=== PATIENT | male | born 1950 | race Caucasian/White ===

== ENCOUNTER 2017-07-10 09:26 | Inpatient (IN) | payer OTHER ==
[2017-07-10] MEDS ORDERED: NS 500 ML IV ONE (09:36)
--- NOTE | 2017-07-10 09:38 | EDPHY ---
H & P Time Seen by Provider: 07/10/17 09:26 HPI/ROS: CHIEF COMPLAINT: Weakness and lightheaded HISTORY OF PRESENT ILLNESS: Patient had cervical spine surgery on June 28 and was discharged home 9 days ago and has been living with a friend he knows from [employer]. According to the discharge summary dated 07/01/2017 he had C3 through 6 decompressive laminectomy with a C3 through T1 posterior spinal fusion. According to EMS they were called because she can't take care of him anymore. Patient says he gets intermittently lightheaded ever since surgery. He describes this as dizziness like "when you stand up too fast after you been working outside on a hot day". Denies vertigo or spinning or ataxia. REVIEW OF SYSTEMS: Eye: no change in vision ENT: no sore throat Cardiac: no chest pain or syncope Pulmonary: no cough or SOB Abdomen: no vomiting, diarrhea, abdominal pain Musculoskeletal: Postoperative neck pain otherwise negative Skin: no rash Neuro: no headache Constitutional: no fever : no urinary symptoms A comprehensive 10 point review of systems is otherwise negative aside from elements mentioned in the history of present illness. PAST MEDICAL HISTORY: Bypass surgery, cervical spine fusion, hypertension, BPH Social history: Living with a friend from [facility] that he knows from [employer], smoker General Appearance: Fluctuates between alert and sleepy,cooperative. Eyes: No scleral icterus. ENT, Mouth: Normal mucous membranes. Respiratory: Normal respiratory effort, breath sounds equal, lungs are clear to auscultation. Cardiovascular: Regular rate and rhythm. Gastrointestinal: Abdomen is soft and non tender. Neurological: Intermittently sleepy and then alert, face symmetric, normal motor and sensory in extremities. Patient initially was quite alert but on repeat examination has some fluctuation in his level of consciousness and the clarity of his speech. Intermittently slurring his words. Skin: Warm and dry, no rashes. Posterior cervical incision looks clean dry and intact without discharge or surrounding warmth or tenderness. Some postoperative inflammatory changes 5 mm each side but no evidence of cellulitis. Musculoskeletal: No peripheral edema. Psychiatric: Not agitated. Emergency Department course/MDM: CBC chemistry and EKG, case management. IV normal saline 500 mL. I do not think this is an acute stroke. 1247: Case management able to talk to the patient's brother in [place]. Apparently he was brought here because he has been intermittently confused, falling, concerned that this may be related to too much medication and he is no longer safe at home with his current state. The brother states that this has been a problem since he was discharged from the hospital, so at least 1 week in duration. Plan for CT scanning of head and cervical spine, admission to hospitalist service. Unable to care for self at home, waxing and waning encephalopathy. Constitutional: Initial Vital Signs Temperature (C) 36.5 C 07/10/17 09:35 Heart Rate 92 07/10/17 09:35 Respiratory Rate 16 07/10/17 09:35 Blood Pressure 140/81 H 07/10/17 09:35 O2 Sat (%) 95 07/10/17 09:35 O2 Delivery Mode Room Air Allergies/Adverse Reactions: No Known Allergies Allergy (Unverified 07/10/17 09:35) Home Medications: Medication Instructions Recorded Acetaminophen [Tylenol ES 500 mg 500 mg PO Q6 PRN 07/10/17 (*)] Cyclobenzaprine [Flexeril 10 MG 10 mg PO TID PRN 07/10/17 (*)] Docusate Sodium [Colace 100 MG (*)] 100 mg PO BID 07/10/17 Metoprolol Tartrate [Lopressor 25 25 mg PO BID 07/10/17 mg (*)] Tamsulosin HCl [Flomax 0.4 MG (*)] 0.4 mg PO BID 07/10/17 oxyCODONE IR [Oxycodone Ir (*)] 5 - 10 mg PO Q6H PRN 07/10/17 Medical Decision Making - Diagnostics EKG Interpretation: 12-lead EKG interpreted by me; official reading is in trace master. My interpretation is sinus rhythm with right axis and old anterior septal infarct. Rate 90. Imaging Results: Imaging Impressions Cervical Spine CT 07/10/17 12:48 Impression: Head CT within normal limits. 2. CT Cervical Spine Without Contrast History: Pain, recent surgery on June 28 , multiple falls since surgery Technique: Multislice helical CT through the cervical spine without contrast from the skull base to T1. Soft tissue and bone evaluation is performed. Sagittal and coronal reconstructions are obtained and reviewed. Images are transferred to the independent 3-D workstation were right created a special model to review the orthopedic hardware and photographed it. Dose reduction techniques were utilized. Findings: Artifact from surgical hardware precludes high resolution soft tissue evaluation of the operative bed. There is some residual postoperative gas in the operative bed. Cervical alignment is anatomic. There is been wide laminectomy between C3 and C7 with posterior fusion between C3 and T1, consisting of posterior transpillar screws on the right at C3, C4 ,C6 and T1 and on the left involving C3, C4, C5,C6 and T1. There is prominent lucency associated with the left C5 screw suggesting that it may be loose. The left C4 screw penetrates the lateral cortex of the mid articular pillar. The left C6 screw slightly penetrates the anterior cortex of the articular pillar. The right C4 screw appears to course through the upper articular pillar cortex and facet joint. The right C6 screw appears to penetrate the inferior cortex of the articular pillar and resides within the C6-C7 facet joint. There are bilateral dorsal vertical supporting rods and a transverse fixation bar at C6. No fracture or dislocation is identified. The relationship between skull base and C1 is normal. The C1-C2 articulation is severely osteoarthritic, but remains normally aligned. The odontoid process is intact. There is severe degenerative disk space narrowing between C4 and C6. I suspect that the C5-C6 disk space has been previously solidly fused. There is degenerative sclerosis in C4 and C5. There is chronic compression of the superior endplate of C5. There is degenerative vacuum phenomenon in the C5-C6 disk space where there are both ventral and small posterior osteophytes present. There is narrowing of the T1- T2 disk space. There is erosive endplate change at C4-C5, C6-C7 and at T1-T2. Is bilateral bone graft material. Facet joints are normally aligned. The cervical thoracic junction is normally aligned. Soft tissue window evaluation does not show evidence of epidural or prevertebral hematoma. Impression: Postoperative changes described above. No evidence for hardware uncoupling or fracture or acute bone fracture or malalignment. Results called to Dr. Mena at 1:51 PM. Final results are concordant with the initial interpretation. General information for patients regarding this examination can be found at [email or web address]. If you have questions or comments about this report, please contact me at [phone](hospital) or [phone] (cell). Head CT 07/10/17 12:48 Impression: Head CT within normal limits. 2. CT Cervical Spine Without Contrast History: Pain, recent surgery on June 28 , multiple falls since surgery Technique: Multislice helical CT through the cervical spine without contrast from the skull base to T1. Soft tissue and bone evaluation is performed. Sagittal and coronal reconstructions are obtained and reviewed. Images are transferred to the independent 3-D workstation were right created a special model to review the orthopedic hardware and photographed it. Dose reduction techniques were utilized. Findings: Artifact from surgical hardware precludes high resolution soft tissue evaluation of the operative bed. There is some residual postoperative gas in the operative bed. Cervical alignment is anatomic. There is been wide laminectomy between C3 and C7 with posterior fusion between C3 and T1, consisting of posterior transpillar screws on the right at C3, C4 ,C6 and T1 and on the left involving C3, C4, C5,C6 and T1. There is prominent lucency associated with the left C5 screw suggesting that it may be loose. The left C4 screw penetrates the lateral cortex of the mid articular pillar. The left C6 screw slightly penetrates the anterior cortex of the articular pillar. The right C4 screw appears to course through the upper articular pillar cortex and facet joint. The right C6 screw appears to penetrate the inferior cortex of the articular pillar and resides within the C6-C7 facet joint. There are bilateral dorsal vertical supporting rods and a transverse fixation bar at C6. No fracture or dislocation is identified. The relationship between skull base and C1 is normal. The C1-C2 articulation is severely osteoarthritic, but remains normally aligned. The odontoid process is intact. There is severe degenerative disk space narrowing between C4 and C6. I suspect that the C5-C6 disk space has been previously solidly fused. There is degenerative sclerosis in C4 and C5. There is chronic compression of the superior endplate of C5. There is degenerative vacuum phenomenon in the C5-C6 disk space where there are both ventral and small posterior osteophytes present. There is narrowing of the T1- T2 disk space. There is erosive endplate change at C4-C5, C6-C7 and at T1-T2. Is bilateral bone graft material. Facet joints are normally aligned. The cervical thoracic junction is normally aligned. Soft tissue window evaluation does not show evidence of epidural or prevertebral hematoma. Impression: Postoperative changes described above. No evidence for hardware uncoupling or fracture or acute bone fracture or malalignment. Results called to Dr. Mena at 1:51 PM. Final results are concordant with the initial interpretation. General information for patients regarding this examination can be found at [email or web address]. If you have questions or comments about this report, please contact me at [phone](hospital) or [phone] (cell). Madhavi at 1351: postop changes, negative head. Head and cervical spine CT. Imaging: Discussed imaging studies w/ director call Radiologist Differential Diagnosis: Differential diagnosis considered for lightheadedness and near syncope including but not limited to vasovagal syncope, arrhythmia, dehydration, and blood loss. Consult/Admit Bed Type: [facility] 1257 - Data Points Laboratory Results: Laboratory Results 07/10/17 09:45 07/10/17 09:45 07/10/17 07/10/17 09:45 09:45 WBC 6.66 10^3/uL 10^3/uL (3.80-9.50) RBC 3.31 10^6/uL L 10^6/uL (4.40-6.38) Hgb 12.5 g/dL L g/dL (13.7-17.5) Hct 35.0 % L % (40.0-51.0) MCV 105.7 fL H fL (81.5-99.8) MCH 37.8 pg H pg (27.9-34.1) MCHC 35.7 g/dL g/dL (32.4-36.7) RDW 12.2 % % (11.5-15.2) Plt Count 163 10^3/uL 10^3/uL (150-400) MPV 9.3 fL fL (8.7-11.7) Neut % (Auto) 51.2 % % (39.3-74.2) Lymph % (Auto) 33.6 % % (15.0-45.0) Bent % (Auto) 12.8 % % (4.5-13.0) Eos % (Auto) 1.1 % % (0.6-7.6) Baso % (Auto) 0.8 % % (0.3-1.7) Nucleat RBC Rel Count 0.0 % % (0.0-0.2) Absolute Neuts (auto) 3.42 10^3/uL 10^3/uL (1.70-6.50) Absolute Lymphs (auto) 2.24 10^3/uL 10^3/uL (1.00-3.00) Absolute Monos (auto) 0.85 10^3/uL H 10^3/uL (0.30-0.80) Absolute Eos (auto) 0.07 10^3/uL 10^3/uL (0.03-0.40) Absolute Basos (auto) 0.05 10^3/uL 10^3/uL (0.02-0.10) Absolute Nucleated RBC 0.00 10^3/uL 10^3/uL (0-0.01) Immature Gran % 0.5 % % (0.0-1.1) Immature Gran # 0.03 10^3/uL 10^3/uL (0.00-0.10) Sodium 137 mEq/L mEq/L (135-145) Potassium 4.4 mEq/L mEq/L (3.5-5.2) Chloride 106 mEq/L mEq/L (97-110) Carbon Dioxide 22 mEq/l mEq/l (22-31) Anion Gap 9 mEq/L mEq/L (8-16) BUN 23 mg/dL mg/dL (7-23) Creatinine 0.9 mg/dL mg/dL (0.7-1.3) Estimated GFR > 60 Glucose 95 mg/dL mg/dL (70-100) Calcium 8.8 mg/dL mg/dL (8.5-10.4) Medications Given: Discontinued Medications Sodium Chloride (Ns) 500 mls @ 0 mls/hr IV EDNOW ONE; Wide Open PRN Reason: Protocol Stop: 07/10/17 09:37 Last Admin: 07/10/17 09:56 Dose: 500 mls Departure - Departure Disposition: [facility] Acute Clinical Impression: Near syncope, Encephalopathy acute Condition: Good
--- NOTE | 2017-07-10 09:42 | CPEKG ---
Heart Rate: 90 RR Interval: 667 P-R Interval: 144 QRSD Interval: 82 QT Interval: 348 QTC Interval: 426 P [place]: 86 QRS [place]: 89 T Wave [place]: 92 EKG Severity - ABNORMAL ECG - EKG Impression: SINUS RHYTHM EKG Impression: BORDERLINE RIGHT AXIS DEVIATION EKG Impression: CONSIDER ANTEROSEPTAL INFARCT EKG Impression: NONSPECIFIC T ABNORMALITIES, LATERAL LEADS Electronically Signed By: Adan Mena 10-Jul-2017 10:29:44
[2017-07-10 10:02] LABS: PLATELET COUNT 163 10^3/uL (150-400)
[2017-07-10] MEDS ORDERED: ACETAMINOPHEN 500 MG TAB PO PRN (16:35)
[2017-07-10] MEDS ORDERED: ALBUTEROL 3 ML DEYVIAL IH PRN (16:44)
[2017-07-10] MEDS ORDERED: ONDANSETRON DISINTEGRATING 4 MG TAB PO PRN (16:44)
[2017-07-10] MEDS ORDERED: ONDANSETRON 4 MG/2 ML VIAL IVP PRN (16:44)
[2017-07-10] MEDS ORDERED: D5W 1/2 NS 1,000 ML IV SCH (16:45)
[2017-07-10] MEDS ORDERED: KETOROLAC 30 MG/1 ML SDV IVP ONE (16:48)
--- NOTE | 2017-07-10 16:59 | ASMTCMCOM ---
CM Note CM Note Notes: Pt transported to the Emergency Department by EMS for dizziness and weakness. Pt is approximately 1 week post op folllowing a C3-6 decompressive laminectomy and C3-T1 posterior spinal fusion at the [facility] on 06/28/17. Asked to see pt by Dr. Mena and JEROD Tang. Met with pt to discuss current situation. Pt very drowsy, confused, difficult to talk to. Pt appears to be a poor historian, providing multiple addresses. Pt unsure of emergency contact phone numbers. Pt states CM can call his Asphalt Distributor Tender, Juan Lees, at [facility] for emergency contact information. Pt reports having his own apartment, but says he has been living with his girlfriend since surgery. Pt says his girlfriend is Hebrew and is named Eliceo Wells, they met at [facility]. Pt does not know girlfriend's number. CM attempted to meet with pt on several occasions. Information from the pt changed with each conversation. CM to reach pt's emergency contacts for assistance in determining plan of care. Unclear why pt is here and how long he has been feeling poorly. Pt reports living at [address] [place] [address] [address] [address]. Pt states his personal cell phone number is . Attempted to call number, pt's name and voice on recording. Call placed to [facility] in [place] , no answer. Attempted several times. Call placed to Juan Lees in [place] (personal residence), no answer. Call placed to [facility] , left voice message for auto specialty services manager. Call placed to [facility] , received number for [facility] administration xt [phone]. Spoke to Ne, Swing Driver on-call at [facility]. Emergency contact information obtained: Danny Vera - brother in [place], [place] Allison Nikki Vera - ex Spoke with pt, permission received to call Danny Vera. Call placed to Danny . Per Danny, pt "has been incoherent confused, dizzy, sleeping all the time, and has fallen a few times since surgery." Danny believes there "may be medication issues." Danny provided Eliceo's contact information (cell), (home). Call placed to pt's girlfriend Eliceo, left voice message. Updates provided to Clyde Navarrete, RN. Pt to be admitted for further evaluation and work up. Call placed to [place] Administration, spoke with Lucero Shi RN. Per Yuridia, pt has [employer] with a 20% service connected, non-exempt plan. The pt is not travel eligible and therefore, cannot be transferred to the [facility]. Yuridia to contact [facility] regarding pt's admission to [facility] ([facility]). Yuridia encouraged [facility] billing department to contact the following parties regarding insurance and coverage benefits: [facility] xt 1006 Jamila Cid at [facility] direct number Lucero Shi RN, Yuridia reports pt's brother and girlfriend had [facility] since discharge 07/01/17 with similar complaints. Family was advised to bring pt to [place] [facility] Department on 07/05/17 and they never showed up. Yruidia said pt's girlfriend called the nurse help line almost daily stating she was unable to care for the pt. In several calls with the pt, he stated he "was doing better and better." Yuridia also offered to connect pt's neurosurgeon Jojo Myers MD with our Hospitalist for any questions or concerns regarding treatment and medications. Yuridia to alert all appropriate parties at the [place] regarding pt's admission and will be in contact with [facility]. Updates provided to Clyde Navarrete, RN and pt's brother Danny. Discharge needs remain unclear at this time. CM will cont to follow. Current Discharge Plan: To be determined Date Signed: 07/10/2017 04:58 PM Electronically Signed By:Kimberly Harrison RN
--- NOTE | 2017-07-10 17:15 | GHP ---
[f rep st] HISTORY AND PHYSICAL DATE OF ADMISSION: 07/10/2017 CHIEF COMPLAINT: Dizziness and weakness. HISTORY OF PRESENT ILLNESS: This is a 67-year-old male, who is status post cervical spine surgery wi th a C3 to C6 decompression and a C3 to T1 posterior fusion performed on 06/28. This surgery was per formed at an outside facility, one of which he cannot name at this time. He was discharged and, for the last 2 weeks to 9 days, he has been weak and dizzy and falling at home. He is being cared for at home by a friend. The friend called EMS because he keeps falling when he stands up. There is no cl ear history here that he has had full syncope, any chest pain, or full loss of consciousness. The pa olman himself reports that he has had dizziness when he tries to stand, and he will fall forward or f all back, and he said he has hit his head several times but has not had loss of consciousness. In th is state, he has been brought into the emergency department. Evaluation in the ER indicated that his mental status would wax and wane, where he would be quite sleepy and then alert. He was given fluid , but there seemed to be no resolution of his alternating mental status, so he was admitted for evalu ation of this acute encephalopathy. His medications are noted and include Flexeril and Oxy IR, but I do not know the quantity of these that he has been taking. Currently on the floor, the gentleman re ports that he has considerable less pain in his neck than he did before the surgery. He was sleeping but easily arousable during my evaluation. A CT scan of the head shows no acute findings and a CT s can of the cervical spine shows no surgical disruption and only postoperative changes. PAST MEDICAL HISTORY: 1. CABG performed in 2002. 2. Hypertension for many years. 3. BPH which is currently under treatment. REVIEW OF SYSTEMS: Except as noted in the HPI, a full 10-point review of systems is entirely negativ e. Specifically, he denies that he has had a sore throat, fever, cough, or feelings of shortness of breath, orthopnea, PND, or any chest pain. He has also had no nausea, vomiting, and reports that his bowels are moving with some assistance but denies hematemesis or hematochezia. He also denies any d ysuria or frequency. Neurologically, he reports that his arms feel much better postoperatively and h as considerably less pain. He denies lower extremity neurologic findings. ALLERGIES: None. SOCIAL HISTORY: Tobacco is currently, and he is smoking 4-6 cigarettes a day and has at least a 40-t s-17-kywl-year history of tobacco as he has been smoking for 40 years and reports he smoked quite hea vily. He stopped alcohol approximately 6 years ago and reports, at times, he drank heavily but never had problems of abuse or blacking out. His a few years ago, and he is staying with a [employer] nd at this time who helped him through the of his . 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 FAMILY HISTORY: Noncontributory for cardiovascular disease. PHYSICAL EXAMINATION: GENERAL: This is a pleasant, alert gentleman who is easily arousable. VITAL SIGNS: He is mildly hypertensive. Heart rate is normal. Oxygen saturation is normal. HEENT: A fe w abrasions on his forehead but the posterior scalp is atraumatic. He is in a [place] fixed cer vical collar which was not removed at this time. Below this area, there appears to be no signs of tr auma, bleeding. CHEST WALL: Nontender to palpation. He has perhaps a slight increase in barrel cecile sted. His breath sounds are diminished slightly overall, but there are no rales, wheezing, or rhonch i. HEART: Regular rate and rhythm. Normal S1 and S2 without a gallop. JVP does not appear to be e levated through the cervical collar. ABDOMEN: Thin. Normoactive bowel sounds. No masses, tenderne ss, organomegaly. EXTREMITIES: No edema, cyanosis, clubbing. Neurologic: He is oriented x3, altho ugh he cannot remember the name of the facility or the physician who performed his surgery. When rem inded, he can remember today's date. Cranial nerves 2-12 are intact to specific testing. His handgr ips are normal. Leg strength and foot strength are normal. LABORATORY: CBC is normal, except for a slightly low hemoglobin at 12.5. Chemistry panel is also no rmal, with normal renal function. Toxicology report has not been done. No blood cultures are drawn. ASSESSMENT: 1. Acute encephalopathy of a waxing and waning in nature. By report, he has been both confused, diz zy, but these symptoms have been both waxing and waning, not only in the emergency department but at home. He was prescribed only narcotic pain medication of a short-acting nature, along with Flexeril, and it seems likely that it is the combination of the short-acting medications causing a waxing and waning mental status. This evening, I am going to stop both of these, and he will be treated only wi th Tylenol and perhaps Toradol. His renal function is normal and he is certainly postop so, at this point, bleeding is not a problem. 2. Hypertension. He has a history of hypertension, and I will restart his metoprolol. He is mildly hypertensive here on the floor. 3. History of coronary artery disease status post CABG. His ECG on review is normal with a sinus rh ythm, showing a possible remote anterior septal myocardial infarction but no acute changes. Chest x- ray is pending. 4. DVT prophylaxis will be with Lovenox as he is postoperative now. 5. Code status is full. 6. Power of erisa attorney is not established. Time was 60 minutes. Patient will be admitted to observation status pending further evaluation. /[id number]/MODL
[2017-07-10] MEDS ORDERED: KETOROLAC 15 MG/1 ML SDV IVP SCH (18:00)
[2017-07-10] MEDS: ACETAMINOPHEN 500 MG TAB PO PRN (18:34)
[2017-07-10] MEDS: METOPROLOL TARTRATE 25 MG TAB PO SCH (20:41)
[2017-07-10] MEDS: DOCUSATE SODIUM 100 MG CAP PO SCH (20:44)
[2017-07-10] MEDS: TAMSULOSIN HCL 0.4 MG CAP PO SCH (20:44)
[2017-07-10] MEDS ORDERED: hydrALAZINE 10 MG TAB PO PRN (23:39)
[2017-07-11 04:50] LABS: PLATELET COUNT 154 10^3/uL (150-400)
[2017-07-11] MEDS: ACETAMINOPHEN 500 MG TAB PO PRN (06:03)
[2017-07-11] MEDS ORDERED: traMADol 50 MG TAB PO PRN (09:30)
[2017-07-11] MEDS: ENOXAPARIN 40 MG/0.4 ML SYR SC SCH (09:31)
[2017-07-11] MEDS: METOPROLOL TARTRATE 25 MG TAB PO SCH ×2 (09:32→21:02)
[2017-07-11] MEDS: DOCUSATE SODIUM 100 MG CAP PO SCH ×2 (09:33→21:02)
[2017-07-11] MEDS: TAMSULOSIN HCL 0.4 MG CAP PO SCH ×2 (09:33→21:02)
[2017-07-11] MEDS: ACETAMINOPHEN 500 MG TAB PO SCH ×2 (11:58→16:14)
[2017-07-11] MEDS ORDERED: NS 1,000 ML IV SCH (12:30)
[2017-07-11] MEDS ORDERED: NS 1,000 ML IV ONE (13:00)
--- NOTE | 2017-07-11 15:48 | ASMTCMCOM ---
CM Note CM Note Notes: PT recommending that patient use a 4WW when up walking but not needing HC; OT not anticipating HC needs. Patient to go home with girlfriend. Patient wants to be discharged today. Date Signed: 07/11/2017 03:48 PM Electronically Signed By:Roseline Clay LCSW
[2017-07-11] MEDS: METAXALONE 800 MG TAB PO SCH ×2 (16:14→21:02)
--- NOTE | 2017-07-11 16:51 | HOSPPROG ---
Hospitalist Progress Note Assessment/Plan: 67-year-old male admitted because of near syncopal episodes in a possible encephalopathy postoperative of cervical spine surgery. Last 24 hr the gentleman's pain is significantly improved without the use of narcotics, he has persisted with systolic hypertension but demonstrates orthostatic findings with some symptomatology. He is able to ambulate but feels weak. He has been given 1 L of normal saline 0 will be continued on IV fluids to see if the orthostatic changes resolve in the next 12-18 hours. Patient will need to be changed to inpatient status because of orthostatic blood pressure and dizziness. -acute encephalopathy: This is now resolved he is alert oriented and appropriate. It was likely this was secondary to the use of short-acting narcotic medication along with muscle relaxants. I believe his mental status is at its baseline now -acute dizziness: This persists mildly. He was orthostatic in given 1 L normal saline but has not completely resolve the dizziness and he continues to show findings of orthostasis. I will continue IV fluids for the evening and recheck orthostatics in the morning. -hypertension: He continues to have systolic hypertension and orthostatic findings. Will continue his metoprolol and cover with hydralazine if needed he has not required hydralazine today so that is not interacting and causing his orthostasis. -pain management: I have DC to all his narcotic pain medication he is on Ultram and Skelaxin, and Tylenol for pain. He reports he is pain free and feeling well. Plan to discharge without narcotics. -COPD by history of tobacco use: Room air oxygenation is normal. Disposition: -patient should be changed to inpatient status due to with a static blood pressure and dizziness. -probable discharge 07/12 to home. He has a friend at home who can help. -pain management can be done without narcotic medication -read for oral to pulmonary for lung care as an outpatient. Subjective: Reports he is pain-free but continues to be slightly dizzy when standing. If he is walking he is not as dizzy. No chest pain shortness of breath or cough Objective: Vital Signs Temp Pulse Resp BP Pulse Ox 36.8 C 68 18 158/88 H 96 07/11/17 16:00 07/11/17 16:00 07/11/17 16:00 07/11/17 16:35 07/11/17 16:00 Laboratory Results 07/11/17 04:23 07/11/17 04:23 07/10/17 07/11/17 07/12/17 05:59 05:59 05:59 Intake Total 450 Balance 450 - Time Spent With Patient Time Spent with Patient: greater than 35 minutes Time Spent with Patient: Greater than 35 minutes spent on this patients care, greater than 50% of time spent counseling, educating, and coordinating care regarding the above mentioned plan. - Pending Discharge Pending Discharge Within 24 Hours: Yes Pending Discharge Date: 07/12/17 Pending Discharge Time: 11:00 - Physical Exam Constitutional: no apparent distress, other (Orthostatic blood pressures are noted) Eyes: PERRL Ears, Nose, Mouth, Throat: moist mucous membranes, hearing normal, other ( Surgical wounds on the posterior cervical region are healing well without tenderness.) Cardiovascular: regular rate and rhythym, no murmur, rub, or gallop Respiratory: no respiratory distress, no rales or rhonchi, reduced air movement Gastrointestinal: normoactive bowel sounds, soft, non-tender abdomen, no palpable masses Genitourinary: no bladder fullness Skin: warm Musculoskeletal: full muscle strength Neurologic: AAOx3, CN II-XII Intact, other (Hand improvement coordinator and foot strength are normal.) Psychiatric: interacting appropriately ICD10 Worksheet Patient Problems: Problems Problem Status Onset Near syncope Acute Encephalopathy acute Acute
[2017-07-11] MEDS ORDERED: D5W NS 1,000 ML IV SCH (17:00)
--- NOTE | 2017-07-11 17:30 | PDMN ---
Medical Necessity Medical necessity: C/M review: Patient meets INPT criteria under [facility] M-152 Dizzinesss: Acute and persistent dizziness, orthostasis - 07/11/2017 10:25 AM - supine BP 152/82, sitting BP 126/80, standing BP 92/80, 07/11/17 12:06 PM - supine BP 145/80, sitting BP 122/76, standing BP 91/67, 1 liter IV NS given, supine BP 158/88, sitting BP 124/80, standing BP 92/78, persistent dizziness and orthostasis (static BP) S/P IV NS, acute encephalopathy (now resolved), likely secondary due to use of short-acting narcotic medication along with muscle relaxants, requiring ongoing IV D5 NS 125 ml/hr, discontinuation of narcotic use, pain management with oral Tylenol Q 6 hrs. scheduled, continue oral Metaxalone TID, comorbid hypertension, COPD by history of tobacco use, patient admitted for near syncopal episodes in a possible encephalopathy postoperative of recent cervical spine surgery. MD anticipates > 2 MN LOS for ongoing med nec for eval and TX of above.
[2017-07-12] MEDS: ACETAMINOPHEN 500 MG TAB PO SCH ×3 (00:45→13:18)
[2017-07-12 08:50] VITALS: RESP 18; TEMP 97.8
[2017-07-12] MEDS: TAMSULOSIN HCL 0.4 MG CAP PO SCH (08:54)
[2017-07-12] MEDS: DOCUSATE SODIUM 100 MG CAP PO SCH (08:54)
[2017-07-12] MEDS: METAXALONE 800 MG TAB PO SCH (08:54)
[2017-07-12] MEDS: ENOXAPARIN 40 MG/0.4 ML SYR SC SCH ×2 (08:54→09:14)
[2017-07-12] MEDS ORDERED: NS 500 ML IV ONE (09:05)
[2017-07-12] MEDS: METOPROLOL TARTRATE 25 MG TAB PO SCH (09:14)
--- NOTE | 2017-07-12 10:56 | PDIAF ---
- Diagnosis Diagnosis: hypotension Code Status: Full Code - Medication Management Discharge Medications: Medications to Continue on Transfer Acetaminophen [Tylenol ES 500 mg (*)] 500 mg PO Q6 PRN 07/10/17 [Last Taken Unknown] Docusate Sodium [Colace 100 MG (*)] 100 mg PO BID 07/10/17 [Last Taken Unknown] Tamsulosin HCl [Flomax 0.4 MG (*)] 0.4 mg PO BID 07/10/17 [Last Taken 07/06/17] Metaxalone [Skelaxin 800 mg (*)] 800 mg PO TID #60 tab 07/12/17 [Last Taken Unknown] traMADol [Ultram 50 mg (*)] 50 mg PO Q6HRS PRN #60 tab 07/12/17 [Last Taken Unknown] Discharge Medications: Refer to the Discharge Home Medication list for PRN reason. - Orders Services needed: Home Care, Registered Nurse Home Care Face to Face: I certify that this patient was under my care and that I had the required [id number] encounter meeting the encounter requirements on the discharge day. My findings support the fact that the patient is homebound as defined in Home Care Face to Face Continued: CMS Chapter 7 Medicare Benefits Manual 30.1.1 , The condition of the patient is such that there exists a normal inability to leave home and consequently, leaving home would require a considerable and taxing effort. Diet Recommendation: no restrictions on diet Diet Texture: Regular Texture Diet - Follow Up Care Current Providers and Referrals: NONE *PRIMARY CARE P,. [Unknown] - As per Instructions
[2017-07-12 14:21] VITALS: BP 134/78; PULSE 75; O2SAT 97
--- NOTE | 2017-07-12 15:50 | ASMTCMCOM ---
CM Note CM Note Notes: Pt medically stable for d/c with [facility] RN, no other CM d/c needs identified. Pt is staying with a friend in [place] and Jc with [facility] obtained the address. Pt cell phone confirmed. Orders sent in [employer]. Date Signed: 07/12/2017 03:49 PM Electronically Signed By:BAUDILIO Santos
--- NOTE | 2017-07-12 15:51 | ASDISCHSUM ---
Discharge Information Plan Status:Home with No Needs Medically Cleared to Leave: Discharge Date:07/12/2017 01:40 PM CM D/C Disposition:Home, Routine, Self-Care ADT D/C Disposition:Home Health Service Projected Discharge Date:07/12/2017 11:00 AM Transportation at D/C:Friend Discharge Delay Reason: Follow-Up Date:07/12/2017 11:00 AM Discharge Slot: Final Diagnosis:Fall at home after Cervical surgery Placement Information Referral Type:*Home Health Care Services Referral ID:[id number] Provider Name:[facility] Address 1:[address] [address] Address 2: City:[place] Selection Factors: State:[place] Patient Contact Information Contact Name:MARY Relationship:Other Address:[address] [place] [address] City:[place] Alternate Phone: State/Zip Code:[place] [address] Email: Financial Information Financial Class:Medicare Primary Plan Desc:MEDICARE INPATIENT Primary Plan Number:[id number] Secondary Plan Desc: Secondary Plan Number: Assessment Information [facility] Progress Note CM Note CM Note Notes: Pt transported to the Emergency Department by EMS for dizziness and weakness. Pt is approximately 1 week post op folllowing a C3-6 decompressive laminectomy and C3-T1 posterior spinal fusion at the [facility] on 06/28/17. Asked to see pt by Dr. Mena and JEROD Tang. Met with pt to discuss current situation. Pt very drowsy, confused, difficult to talk to. Pt appears to be a poor historian, providing multiple addresses. Pt unsure of emergency contact phone numbers. Pt states CM can call his Robotics Specialist, Juan Nabeel, at [facility] for emergency contact information. Pt reports having his own apartment, but says he has been living with his girlfriend since surgery. Pt says his girlfriend is [place] and is named Eliceo Wells, they met at [facility]. Pt does not know girlfriend's number. CM attempted to meet with pt on several occasions. Information from the pt changed with each conversation. CM to reach pt's emergency contacts for assistance in determining plan of care. Unclear why pt is here and how long he has been feeling poorly. Pt reports living at [address] [place] [address] [address], [place] [address]. Pt states his personal cell phone number is . Attempted to call number, pt's name and voice on recording. Call placed to [facility] in [place] , no answer. Attempted several times. Call placed to Juan Lees in [place] (personal residence), no answer. Call placed to [facility] , left voice message for community outreach manager. Call placed to [facility] , received number for [facility] administration xt [phone]. Spoke to Ne, Groundman/Lineman on-call at [facility]. Emergency contact information obtained: Danny Vera - brother in [place], [place] Allison Nikki Vera - ex Spoke with pt, permission received to call Danny Vera. Call placed to Danny . Per Danny, pt "has been incoherent confused, dizzy, sleeping all the time, and has fallen a few times since surgery." Danny believes there "may be medication issues." Danny provided Eliceo's contact information (cell), (home). Call placed to pt's girlfriend Eliceo, left voice message. Updates provided to Clyde Navarrete, RN. Pt to be admitted for further evaluation and work up. Call placed to [place], spoke with Yuridia Patient Access, RN. Per Yuridia, pt has 's Insurance with a 20% service connected, non-exempt plan. The pt is not travel eligible and therefore, cannot be transferred to the [facility]. Yuridia to contact [facility] regarding pt's admission to [facility] ([facility]). Yuridia encouraged [facility] billing department to contact the following parties regarding insurance and coverage benefits: [facility] [place] [address] Jamila Cid at [facility] direct number Yuridia, Patient patient accounts manager, Yuridia reports pt's brother and girlfriend had contacted the [place] on numerous occasions since discharge 07/01/17 with similar complaints. Family was advised to bring pt to [place] Emergency Department on 07/05/17 and they never showed up. Yuridia said pt's girlfriend called the nurse help line almost daily stating she was unable to care for the pt. In several calls with the pt, he stated he "was doing better and better." Yuridia also offered to connect pt's neurosurgeon Jojo Myers MD with our Hospitalist for any questions or concerns regarding treatment and medications. Yuridia to alert all appropriate parties at the [place] regarding pt's admission and will be in contact with [facility]. Updates provided to Clyde Navarrete RN and pt's brother Danny. Discharge needs remain unclear at this time. CM will cont to follow. Current Discharge Plan: To be determined Date Signed: 07/10/2017 04:58 PM Electronically Signed By:Kimberly Harrison RN [facility] CM Progress Note CM Note CM Note Notes: PT recommending that patient use a 4WW when up walking but not needing HC; OT not anticipating HC needs. Patient to go home with girlfriend. Patient wants to be discharged today. Date Signed: 07/11/2017 03:48 PM Electronically Signed By:Roseline Clay LCSW [facility] CM Progress Note CM Note CM Note Notes: Pt medically stable for d/c with Hallie Hylton RN, no other CM d/c needs identified. Pt is staying with a friend in [place] and Jc with [facility] obtained the address. Pt cell phone confirmed. Orders sent in [employer]. Date Signed: 07/12/2017 03:49 PM Electronically Signed By:BAUDILIO Santos Intervention Information Intervention Type:Locating Emergency Contact Date of Service:07/10/2017 03:56 PM Patient Type:Inpatient Staff Member:JEROD Harrison Taylor Hours:1.5 Discipline: Severity: Comment:Spent prolonged amount of time trying to locate pt's emergency contact to determine pl an of care. See CM note.
--- NOTE | 2017-07-12 17:18 | GDS ---
[f rep st] DISCHARGE SUMMARY DISCHARGE DIAGNOSES: Include: 1. Acute encephalopathy thought secondary to narcotic and sedating pain medications. 2. Hypotension with associated lightheadedness. 3. Chronic obstructive pulmonary disease. 4. Recent cervical spine surgery. HISTORY OF PRESENT ILLNESS: A 67-year-old male who presented with a near-syncopal episode postoperat irene several weeks from a recent cervical spine surgery. For details of patient's initial presentatio n, please see the History and Physical dated 07/10/2017. CONSULTATIVE SERVICES: None. PROCEDURES: On 07/10/2017, patient had a cervical spine CT that showed postoperative changes. No ev idence of hardware uncoupling or fracture or acute bone fracture or malalignment. On 07/10/2017, marisel tilley had a noncontrast CT of the head that showed no acute findings. HOSPITAL COURSE BY ISSUE: 1. Presyncope. Patient did have intermittent low blood pressures, initially symptomatic. He receiv ed aggressive fluid resuscitation and had improvement in his sensation of dizziness. He reports he h as chronically had difficult to manage blood pressure with wide fluctuations between low blood pressu res and borderline high. He has been through many different antihypertensive medications. On the da y of disposition, he is no longer having any symptoms of dizziness or lightheadedness, even with ambu lation with his walker. He is continuing to have fluctuations in his blood pressure. We have opted to hold his outpatient metoprolol until he is evaluated by his primary care team, who have been clear ly and carefully managing his blood pressure in the outpatient setting. We believe it is safer for h im to run slightly high in the postoperative time period while requiring pain medicines than too low. Patient was cleared by Physical Therapy and will return home with home PT, RN, and neurosurgical fo radha. 2. Acute encephalopathy. Patient did have confusion at initial presentation. He had all sedating p ain medications held and had complete resolution of this encephalopathy. He is being discharged on U ltram and Skelaxin for his outpatient pain management. 3. Recent cervical spine surgery. He has an appointment in 1 week's time to follow with his neurosu rgical team. He will continue to wear a collar, per their recommendations, and [facility]urgical wound monitoring. MEDICATIONS AT THE TIME OF DISPOSITION: Please reference the med rec printed on 07/12/2017. PENDING STUDIES: At the time of this dictation are none. FOLLOWUP APPOINTMENTS: Include July 20 with his outpatient neurosurgical team for postoperative fo llowup. The patient is additionally being discharged with home nursing and physical therapy for assi stance prior to that followup appointment. I spent greater than 30 minutes in the planning and coordination of this discharge. /[id number]/MODL
== END 2017-07-12 13:40 | disposition home health service (06) | DRG 314 ==
LOC: INTOOBSV 12:57 → F3N 14:39 → OBSVTOIN 07-11 17:01
PROVIDERS: ADMIT Internal Medicine Pulmonary Disease; ATTEND Internal Medicine Pulmonary Disease
DX: I95.9 Hypotension, unspecified (principal); G92 Toxic encephalopathy; T40.605A Adverse effect of unspecified narcotics, initial encounter; I25.10 Atherosclerotic heart disease of native coronary artery without angina pectoris; N40.0 Benign prostatic hyperplasia without lower urinary tract symptoms; J44.9 Chronic obstructive pulmonary disease, unspecified; I10 Essential (primary) hypertension; Z98.1 Arthrodesis status; Z95.1 Presence of aortocoronary bypass graft; F17.210 Nicotine dependence, cigarettes, uncomplicated
CPT/HCPCS: 97116-GP; 97161-GP; 97165-GO; 97535-GO; G0378; G8978-GP-CI; G8979-GP-CI; G8980-GP-CI; G8987-GO-CI; G8988-GO-CI; G8989-GO-CI; J1650